=== PATIENT | male | born 2000 | race African-American/Black ===

== ENCOUNTER 2023-07-24 12:43 | Emergency (ER) | payer MEDICAID ==
[~2023-07-24] VITALS: Ht 152.4 cm; Wt 77.1 kg
[2023-07-24 13:24] VITALS: BP_SYST 106; PULSE 55; RESP 18; TEMP 98.3; O2SAT 98
[2023-07-24 15:10] VITALS: BP_SYST 104; PULSE 68; RESP 20; TEMP 98.8; O2SAT 98
== END 2023-07-24 15:10 | disposition home or self-care (01) ==
LOC: SED 12:43
DX: Z48.02 Encounter for removal of sutures (principal)
CPT/HCPCS: 99281